=== PATIENT | female | born 1950 | race Caucasian/White ===

== ENCOUNTER 2019-06-24 07:09 | Day surgery (SDC) | payer MEDICARE ==
[~2019-06-24] VITALS: Ht 175.3 cm; Wt 108.4 kg
[2019-06-24 07:42] LABS: BASOPHILS 0.3 % (0-2); EOSINOPHILS 7.7 % (0-7); HEMATOCRIT 32.7 % (36.0-48.0); HEMOGLOBIN 10.1 g/dL (12-16); IMMATURE GRANULOCYTES 0.4 % (0-5); LYMPHOCYTES 17.1 % (15-50); MCH 26.6 pg (26.0-34.0); MCHC 30.9 g/dL (31.0-37.0); MCV 86.3 fL (80.0-100.0); MEAN PLATELET VOLUME 9.2 fL (7.4-10.4); MONOCYTES 9.7 % (2-11); NEUTROPHILS 64.8 % (40-80); PLATELET COUNT 219 10x3/uL (130-400); RBC 3.79 10x6/uL (4.00-5.40); RDW 15.2 % (11.5-14.5); WBC 6.9 10x3/uL (4.8-10.8)
[2019-06-24 07:54] LABS: ANION GAP 11.6 mmol/L (8-16); CALCIUM 8.6 mg/dL (8.5-10.1); CARBON DIOXIDE 30.1 mmol/L (21.0-32.0); CREATININE - SERUM 1.6 mg/dL (0.6-1.3); POTASSIUM - SERUM 4.7 mmol/L (3.5-5.1)
[2019-06-24 08:02] LABS: INR 1.11 (0.85-1.17); PROTIME 14.2 SECONDS (11.6-15.0)
[2019-06-24 09:07] VITALS: BP 153/78; Ht 175.3 cm; Wt 108.4 kg
--- NOTE | 2019-06-24 15:01 | NUR ---
1500 DR. AILEEN AGUILAR.
--- NOTE | 2019-06-25 17:00 | OP ---
PATIENT NAME: MAYUR MOORE MEDICAL RECORD: [id number] :50 LOCATION:[facility] ADMISSION DATE: SURGEON: MARCELL GALLAGHER MD DATE OF OPERATION: 06/24/2019 REFERRING PHYSICIAN: Dr. Alcantara. POSTOPERATIVE DIAGNOSES: End-stage renal disease, on dialysis and dependence on renal dialysis. OPERATION PERFORMED: Creation of a right brachiocephalic Rina type AV fistula. SURGEON: Marcell Gallagher MD ANESTHESIA: Regional nerve block and MAC per CERTIFIED TUMOR REGISTRAR. PREOPERATIVE NOTE: Ms. Moore is a 68-year-old white female patient from [place], who has started dialysis with a tunneled catheter and needs a long-term access. She has had vein mapping studies and we have elected to create a brachiocephalic AV fistula on the right. Under anesthesia and with the nerve block, the patient was prepped and draped in sterile manner. She was examined with Duplex B-mode ultrasound with color flow. After applying nitroglycerin to the intact skin of the arm and forearm and applying a Barnard drain as a proximal venous tourniquet. The patient had a nice large basilic vein, but also had an adequate cephalic vein for primary brachiocephalic fistula, which we can expect will not require translocation. There were 1 or 2 areas of relatively stenotic segments which might benefit from balloon angioplasty forced maturation in the weeks ahead. I made a transverse antecubital incision and exposed the median cubital cephalic vein and dissected it from the surrounding tissues. It was ligated distally with 3-0 Vicryl. It was transected and bevelled, flushed with heparinized saline and hydrostatically dilated and treated with topical papaverine. The artery was exposed and controlled with doubly looped Silastic tapes. It was occluded opened for about 7 mm flushed proximally and distally with heparinized saline and an end-to-side, end of vein to side of artery anastomosis was performed with running 7-0 Prolene. When the loops and clamps were released, excellent flow developed immediately in the new fistula. The suture line was hemostatic. The wound was treated with a light application of hemostatic starch powder which was then irrigated away with Ancef and gentamicin solution. The wound was hemostatic at that point and closed with interrupted inverted 3-0 Vicryl and then running intracuticular 4-0 Stratafix and Dermabond glue. It was dressed with Maxorb Ag, Tegaderm, and Cavilon skin prep. The patient at that point was awakened and taken to the recovery room. Blood loss during the operation was insignificant and unreplaced. All sponges, instruments and needles were accounted for. No drain was used and no surgical specimen was submitted for histopathology. PLAN: The patient will go home today wearing a sling. She is encouraged to remove the sling and resume regular activities as tolerated just as soon as the nerve block has worn off. She is to continue her same diet and dialysis OPERATIVE REPORT [id number] MAYUR MOORE schedule and is given a prescription for tramadol 50 mg, she can take 1 or if needed 2 every 4-6 hours p.r.n. for pain, 14 tablets. An appointment will be made for her to see me back in my office next week. TRANSINT:[id number] Voice Confirmation ID: [id number] DOCUMENT ID: [id number] cc: [facility] MARCELL GALLAGHER MD at 1700 CC: NALINI ALCANTARA [phone] DICTATION DATE: 06/24/19 1430 GAS ENGINE REPAIRER: 06/24/19 0319 [facility] [place] 06/24/19 [facility] [address] [place] [address]
== END 2019-06-24 15:20 | disposition home or self-care (01) ==
LOC: D.OPS 07:09
PROVIDERS: Surgery; ATTEND Internal Medicine Nephrology
DX: N18.6 End stage renal disease (principal); Z99.2 Dependence on renal dialysis; J44.9 Chronic obstructive pulmonary disease, unspecified; Z95.1 Presence of aortocoronary bypass graft; I10 Essential (primary) hypertension; I48.20 Chronic atrial fibrillation, unspecified; K21.9 Gastro-esophageal reflux disease without esophagitis; E11.9 Type 2 diabetes mellitus without complications